=== PATIENT | female | born 1995 | race Two or more races ===

== ENCOUNTER 2019-04-15 23:10 | Emergency (ER) | payer OTHER ==
[~2019-04-15] VITALS: Ht 162.6 cm; Wt 47.7 kg
--- NOTE | 2019-04-15 23:20 | NUR ---
BIB [facility] FOR +ETOH. PT DRINKING WITH FRIENDS. PT UNRESPONSIVE. VEST BASTER 18G RAC, 4 ZOFRAN, 500ML NS. PT CONNECTED TO MONITORING. BF AT BEDSIDE. CALL LIGHT IN REACH.
[2019-04-15] MEDS ORDERED: SODIUM CHLORIDE 0.9%, 500ML IVBOLUS ONE (23:30)
--- NOTE | 2019-04-15 23:58 | NUR ---
REPORT GIVEN TO HERON QUIROS.
--- NOTE | 2019-04-16 00:17 | NUR ---
PT RESTING ON GURNEY, OPENS EYES TO VERBAL RESPONSE, ALERT TO SELF AND TIME, REORIENTED PT TO EVENT AND PLACE. NOTED SPO2 90% R/A APPLIED 2L N/C-SPO2 100%. MONITORS IN PLACE, SIDERAIL SUP X2, CALL LIGHT WITHIN REACH
--- NOTE | 2019-04-16 00:56 | NUR ---
PT A&OX4, ANSWERING ALL QUESTIONS APPROPRIATELY, ABLE TO AMBULATE WITHOUT DIFFICULTY, REQUESTING TO GO HOME. PT'S BOYFRIEND AT BEDSIDE AND PT STATED HE WILL DRIVE ME HOME.
[2019-04-16 00:58] VITALS: BP 105/70
== END 2019-04-16 01:08 | disposition home or self-care (01) ==
LOC: ED 04-16 00:58
DX: F10.129 Alcohol abuse with intoxication, unspecified (principal); Y90.9 Presence of alcohol in blood, level not specified
CPT/HCPCS: 99283; J7040